=== PATIENT | female | born 1980 | race Caucasian/White ===

== ENCOUNTER 2017-02-16 17:37 | Emergency (ER) | payer SELFPAY ==
[2017-02-16 17:51] VITALS: BMI 34.7
[2017-02-16 17:55] VITALS: RESP 18; O2SAT 100
[2017-02-16] MEDS ORDERED: Lactated Ringer's 1,000 ML IV ONE (19:09)
--- NOTE | 2017-02-16 19:09 | C.PDOC ---
History Of Present Illness Patient who is 12 weeks , P:3, presents to the ER with a complaint of vaginal spotting. Denies abdominal pain, nausea, or vomiting. Time Seen by Provider: 02/16/17 19:09 Chief Complaint (Nursing): Female Genitourinary History Per: Patient History/Exam Limitations: no limitations Onset/Duration Of Symptoms: Days Current Symptoms Are (Timing): Still Present Severity: Mild Pain Scale Rating Of: 3 Quality Of Discomfort: Unable To Describe Associated Symptoms: denies: Fever, Chills, Nausea, Vomiting Alleviating Factors: None Recent travel outside of the [place]: No Abnormal Vaginal Bleeding: No Past Medical History Reviewed: Historical Data, Nursing Documentation, Vital Signs Vital Signs: Last Vital Signs Temp 98.6 F 02/16/17 17:51 Pulse 72 02/16/17 17:51 Resp 18 02/16/17 17:51 BP 106/72 02/16/17 17:51 Pulse Ox 100 02/16/17 19:50 - Medical History PMH: HTN Family History: States: No Known Family Hx - Social History Hx Alcohol Use: No Hx Substance Use: No - Immunization History Hx Tetanus Toxoid Vaccination: No Hx Influenza Vaccination: No Hx Pneumococcal Vaccination: No Review Of Systems Constitutional: Negative for: Fever, Chills Gastrointestinal: Negative for: Nausea, Vomiting, Abdominal Pain Genitourinary: Positive for: Other (Vaginal spotting) Physical Exam - Physical Exam Appears: Non-toxic, No Acute Distress Skin: Warm, Dry Head: Normacephalic Eye(s): bilateral: Normal Inspection Oral Mucosa: Moist Neck: Supple Chest: Symmetrical, No Tenderness Cardiovascular: Rhythm Regular Respiratory: No Rales, No Rhonchi, No Wheezing Gastrointestinal/Abdominal: Soft, No Tenderness, Other (Gravid) Extremity: Normal ROM Extremity: Bilateral: Atraumatic Neurological/Psych: Oriented x3 Gait: Steady ED Course And Treatment - Laboratory Results Result Diagrams: 02/16/17 19:05 02/16/17 19:05 O2 Sat by Pulse Oximetry: 100 (Room air) Pulse Ox Interpretation: Normal Progress Note: Blood work, urinalysis, and pelvic US ordered. IV fluids administered. Reassessment Condition: Improved Disposition Counseled Patient/Family Regarding: Studies Performed, Diagnosis, Need For Followup - Disposition Referrals: [facility] [Outside] [facility] [Outside] Disposition: HOME/ ROUTINE Disposition Time: 19:09 Condition: FAIR Instructions: Threatened Miscarriage (ED) Forms: [facility] (Hong Konger) Print Language: BOLIVIAN - Clinical Impression Clinical Impression: Threatened miscarriage - Scribe Statement The provider has reviewed the documentation as recorded by the Scribtessie Pack All medical record entries made by the Codeyibe were at my direction and personally dictated by me. I have reviewed the chart and agree that the record accurately reflects my personal performance of the history, physical exam, medical decision making, and the department course for this patient. I have also personally directed, reviewed, and agree with the discharge instructions and disposition.
[2017-02-16 19:11] LABS: BASO % 0.5 % (0.0-2.0); EOS # 0.1 K/uL (0.0-0.7); EOS % 1.7 % (0.0-4.0); HEMATOCRIT 40.4 % (34.0-47.0); LYMPH # 2.4 K/uL (1.0-4.3); LYMPH % 29.9 % (20.0-40.0); MEAN CELL VOLUME 85.9 fL (81.0-99.0); MEAN CORPUSCULAR HEMOGLOBIN 28.4 pg (27.0-31.0); MEAN CORPUSCULAR HGB CONC 33.1 g/dL (33.0-37.0); MEAN PLATELET VOLUME 9.4 fL (7.2-11.7); MONO # 0.5 K/uL (0.0-0.8); MONO % 5.7 % (0.0-10.0); RED CELL DISTRIBUTION WIDTH 13.6 % (11.5-14.5)
[2017-02-16 19:29] LABS: ALB/GLOB RATIO 1.4 (1.0-2.1); BILIRUBIN,TOTAL 0.3 mg/dL (0.2-1.3); CALCIUM 8.1 mg/dl (8.6-10.4); GFR AFRICAN-AMERICAN > 60; GLUCOSE,RANDOM 75 mg/dL (65-105); TOTAL PROTEIN 6.7 g/dL (6.3-8.3)
[2017-02-16 19:31] LABS: ALKALINE PHOSPHATASE 74 U/L (38-126); ALT/SGPT 26 U/L (9-52); AST/SGOT 26 U/L (14-36); BLOOD UREA NITROGEN 11 mg/dL (7-17); CARBON DIOXIDE 28 mmol/L (22-30); CHLORIDE 100 mmol/L (98-107); POTASSIUM 3.9 mmol/L (3.6-5.2); SODIUM 133 mmol/L (132-148)
--- NOTE | 2017-02-16 20:48 | US ---
EXAM: US First Trimester, Transabdominal CLINICAL HISTORY: 36 years old, female; Signs and symptoms; Lmp or gestational age (in weeks): 12/15/2016; Antepartum complications; Bleeding; ; Additional info: , vag bleed TECHNIQUE: Real-time transabdominal obstetrical ultrasound of the maternal pelvis and a first trimester with image documentation. COMPARISON: There are no prior studies for comparison. FINDINGS: Gestation: There is a single gestational sac in the uterus. No yolk sac or pole is identified. Uterus/cervix: Uterus is anteflexed. The uterus measures approximately 10 x 5.3 x 6 cm. Ovaries: Neither ovary could be identified. Free fluid: There is no free fluid. Bladder: Bladder is incompletely distended. IMPRESSION: Single gestational sac in the uterus difficult to further evaluate EXAM: US , Transvaginal EXAM DATE/TIME: 02/16/2017 7:10 PM CLINICAL HISTORY: 36 years old, female; Signs and symptoms; Lmp or gestational age (in weeks): 12/15/2016; Antepartum complications; Bleeding; ; Additional info: , vag bleed TECHNIQUE: Real-time transvaginal obstetrical ultrasound of the maternal pelvis and a first trimester with image documentation. Transvaginal imaging was used for better evaluation of the fetus and adnexa. COMPARISON: There are no prior studies for comparison. FINDINGS: Gestation: There is a single gestational sac in the uterus.Gestational sac has mean diameter 17.7 mm. A yolk sac is present, internal diameter measures 1 mm in diameter. pole is not identified. Uterus/cervix: Uterus measures approximately 8.8 x 5 x 6.2 cm. Cervix measures approximately 3.6 cm in length. There is a 7 x 7 x 8 mm anterior subserosal fibroid. Ovaries: Right ovary measures approximately 2.9 x 1.8 x 2.6 cm. There are multiple small follicles. There is intraovarian blood flow. There is a corpus luteum. Left ovary measures approximately 2.6 x 1.4 x 2.2 cm.There are multiple small follicles. There is intraovarian blood flow. Free fluid: There is no free fluid. IMPRESSION: Early intrauterine gestation 6 weeks 1 day by sac size, 1 mm diameter yolk sac, pole not yet visible
[2017-02-16 21:04] VITALS: BP 104/61; PULSE 82; TEMP 98.8
[2017-02-16 21:15] LABS: RBC URINE 13 /hpf (0-3); URINE BACTERIA FEW (<OCC); URINE BILIRUBIN NEGATIVE (NEGATIVE); URINE BLOOD 2+ (NEGATIVE); URINE COLOR Yellow (YELLOW); URINE GLUCOSE (UA) NORMAL (Normal); URINE KETONE NEGATIVE (NEGATIVE); URINE PROTEIN NEGATIVE (NEGATIVE); URINE UROBILINOGEN NORMAL mg/dL (0.2-1.0); WBC URINE 6 /hpf (0-5)
[2017-02-16 21:16] LABS: URINE LEUKOCYTE ESTERASE 1+ Leu/uL (Negative)
== END 2017-02-16 21:20 | disposition home or self-care (01) ==
LOC: C.ER 17:37
DX: O20.0 Threatened abortion (principal); Z3A.12 12 weeks gestation of pregnancy

== ENCOUNTER 2017-02-17 11:24 | Emergency (ER) | payer SELFPAY ==
[2017-02-17 11:24] VITALS: BMI 34.7
[2017-02-17 11:32] VITALS: BP 115/79; PULSE 75; RESP 20; TEMP 98.9; O2SAT 100
--- NOTE | 2017-02-17 12:07 | C.PDOC ---
History Of Present Illness 36-year-old approx 6 week female, () presents to the emergency department with complaints of vaginal spotting that started yesterday. This morning, patient woke up and had an episode of where she passed a large clot, so came to ER. She was seen in this ER yesterday, blood work and ultrasound were done; states she was told to return to the ED in one week. Patient admits to pelvic cramping, but denies fever, vomiting, dysuria, vaginal discharge. Time Seen by Provider: 02/17/17 11:40 Chief Complaint (Nursing): Abdominal Pain History Per: Patient History/Exam Limitations: no limitations Onset/Duration Of Symptoms: Days Current Symptoms Are (Timing): Still Present Severity: Mild Quality Of Discomfort: Cramping Associated Symptoms: denies: Fever, Chills, Nausea, Vomiting, Diarrhea, Urinary Symptoms Abnormal Vaginal Bleeding: Yes Past Medical History Reviewed: Historical Data, Nursing Documentation, Vital Signs Vital Signs: Last Vital Signs Temp 98.9 F 02/17/17 11:27 Pulse 75 02/17/17 11:27 Resp 20 02/17/17 11:27 BP 115/79 02/17/17 11:27 Pulse Ox 100 02/17/17 17:28 - Medical History PMH: HTN Family History: States: No Known Family Hx - Social History Hx Alcohol Use: No Hx Substance Use: No - Immunization History Hx Tetanus Toxoid Vaccination: No Hx Influenza Vaccination: No Hx Pneumococcal Vaccination: No Review Of Systems Except As Marked, All Systems Reviewed And Found Negative. Constitutional: Negative for: Fever Cardiovascular: Negative for: Chest Pain, Palpitations Respiratory: Negative for: Cough, Shortness of Breath Gastrointestinal: Negative for: Nausea, Vomiting, Abdominal Pain, Diarrhea Genitourinary: Positive for: Vaginal Bleeding, Pelvic Pain. Negative for: Dysuria, Vaginal Discharge Skin: Negative for: Rash Neurological: Negative for: Weakness, Numbness, Headache Physical Exam - Physical Exam Appears: Well, Non-toxic, No Acute Distress Skin: Warm, Dry, No Rash Head: Normacephalic Eye(s): bilateral: Normal Inspection Oral Mucosa: Moist Neck: Normal, Normal ROM Cardiovascular: Rhythm Regular Respiratory: Normal Breath Sounds, No Rales, No Rhonchi, No Wheezing Gastrointestinal/Abdominal: Bowel Sounds, Soft, Tenderness (Mild, suprapubic TTP , (-) McBurney's) Back: No CVA Tenderness Extremity: Normal ROM Neurological/Psych: Oriented x3 ED Course And Treatment O2 Sat by Pulse Oximetry: 100 (RA) Pulse Ox Interpretation: Normal Progress Note: Prior visit reviewed, patient's US showed " Early intrauterine gestation 6 weeks 1 day by sac size, 1 mm diameter yolk sac, pole not yet visible". Beta quant was 6574. Patient not currently having active bleeding. PO tylenol given for pelvic cramping. Explained to patient that her beta quant needs to be repeated with a minimum of 48 hours in between tests; doing it today may not provide any information. She was instructed to return tomorrow for reeval and repeat beta quant. She understands she should return sooner if she experiences heavy bleeding or worsening symptoms. Reevaluation Time: 12:15 Reassessment Condition: Improved Disposition Counseled Patient/Family Regarding: Studies Performed, Diagnosis, Need For Followup, Rx Given - Disposition Referrals: [facility] [Outside] Disposition: HOME/ ROUTINE Disposition Time: 12:15 Condition: STABLE Additional Instructions: REGRESAR AL LIONEL DE EMERGENCIAS MAANA PARA REPETIR NIVEL HORMONAL USE TYLENOL SEGN SEA NECESARIO PARA DOLOR BEBER MUCHO LQUIDO REGRESE AL LIONEL DE EMERGENCIA SI LOS SNTOMAS EMPEORAN Prescriptions: Acetaminophen [Tylenol 325mg tab] 650 mg PO Q6 PRN #30 tab PRN Reason: pain/fever Instructions: First Trimester Vaginal Bleed (ED) Forms: [facility] (Greek) Print Language: BOLIVIAN - POA Present On Arrival: None - Clinical Impression Clinical Impression: Vaginal bleeding before 22 weeks gestation - Scribe Statement The provider has reviewed the documentation as recorded by the Scribe (Barbara Smith) All medical record entries made by the Scribe were at my direction and personally dictated by me. I have reviewed the chart and agree that the record accurately reflects my personal performance of the history, physical exam, medical decision making, and the department course for this patient. I have also personally directed, reviewed, and agree with the discharge instructions and disposition.
== END 2017-02-17 12:19 | disposition home or self-care (01) ==
LOC: C.ER 11:24
DX: O46.91 Antepartum hemorrhage, unspecified, first trimester (principal); Z3A.01 Less than 8 weeks gestation of pregnancy

== ENCOUNTER 2017-02-18 10:38 | Emergency (ER) | payer OTHER ==
[2017-02-18 10:38] VITALS: BMI 34.7
[2017-02-18 10:46] VITALS: O2SAT 98
--- NOTE | 2017-02-18 12:33 | C.PDOC ---
History Of Present Illness <NikkoMendozaSerrato Ness - Last Filed: 02/18/17 14:08> <Negar Ovalle - Last Filed: 02/18/17 14:30> 36 yr old female with , presents to the ER for repeat HCG and US. Patient was seen 2 days ago and was advised to return. Patient also had a US 3 days ago which showed a gestational sack but no pulse. Patient admits to ongoing vaginal spotting. BETA on 02/16 6574 and today 2240. Denies fever, chills, nausea, vomiting, abdominal pain, diarrhea, dysuria, weakness or numbness. ( Rojelio El) History Per: Patient History/Exam Limitations: no limitations Onset/Duration Of Symptoms: Days Current Symptoms Are (Timing): Still Present <NikkoMendozaSerrato Ness - Last Filed: 02/18/17 14:08> <Negar Ovalle - Last Filed: 02/18/17 14:30> Time Seen by Provider: 02/18/17 11:13 Chief Complaint (Nursing): Medical Clearance Past Medical History Reviewed: Historical Data, Nursing Documentation, Vital Signs - Medical History PMH: HTN (Gestational) Family History: States: No Known Family Hx - Social History Hx Alcohol Use: No Hx Substance Use: No - Immunization History Hx Tetanus Toxoid Vaccination: No Hx Influenza Vaccination: No Hx Pneumococcal Vaccination: No <Mendoza Elpson Ness - Last Filed: 02/18/17 14:08> Vital Signs: Last Vital Signs Temp 97.2 F L 02/18/17 14:08 Pulse 73 02/18/17 14:08 Resp 14 02/18/17 14:08 BP 109/76 02/18/17 14:08 Pulse Ox 98 02/18/17 14:08 Review Of Systems Except As Marked, All Systems Reviewed And Found Negative. Constitutional: Negative for: Fever, Chills Gastrointestinal: Negative for: Nausea, Vomiting, Abdominal Pain, Diarrhea Genitourinary: Positive for: Vaginal Bleeding (Spotting). Negative for: Dysuria Neurological: Negative for: Weakness, Numbness <Mendoza Elpson Ness - Last Filed: 02/18/17 14:08> Physical Exam - Physical Exam Appears: Non-toxic, No Acute Distress Skin: Warm, Dry, No Rash Head: Atraumatic, Normacephalic Eye(s): bilateral: Normal Inspection, PERRL, EOMI Oral Mucosa: Moist Respiratory: Normal Breath Sounds, No Rales, No Rhonchi, No Stridor, No Wheezing Gastrointestinal/Abdominal: Normal Exam, Soft, No Tenderness, No Guarding, No Rebound Extremity: Normal ROM, No Swelling Neurological/Psych: Oriented x3, Normal Speech, Normal Motor <Rojelio El M - Last Filed: 02/18/17 14:08> ED Course And Treatment O2 Sat by Pulse Oximetry: 98 (RA) Pulse Ox Interpretation: Normal - CT Scan/US US - Transvaginal Other Rad Studies (CT/US): Read By Radiologist, Radiology Report Reviewed CT/US Interpretation: HISTORY: repeat ultrasound from 02/16/17. COMPARISON: 02/16/2017. TECHNIQUE: Transvaginal. FINDINGS: UTERUS: Measures 10.0 x 5.1 x 6.4 cm. Normal in size and appearance. Anterior Mid body level intramural fibroids 1 measures 1.5 x 0.7 x 1.0 cm another measures 10 x 8 x 8 mm. ENDOMETRIUM: Measures approximately a 4 to 5 mm mm in diameter. Unremarkable. CERVIX: Interval distal positioning of the prior intrauterine just gestational sac is now suggested. The gestational sac irregularly-shaped. No embryonic pole within it is seen. Failed inferred. Specifically an in progress is compatible with this the declining beta HCG levels are also consistent with this. Also noted is a nabothian cyst low level echoes within it -minimally complex measuring 8 mm. RIGHT OVARY: Measures 2.8 x 02.0 x 2.3 cm cm. No solid mass. Normal flow. LEFT OVARY: Measures 2.7 x 1.5 x 2.0 cm. No solid mass. Normal flow. FREE FLUID: There is a small amount of free fluid in the cul-de-sac. OTHER FINDINGS: None. IMPRESSION: Findings consistent with an in progress. The irregularly-shaped gestational sac is not the level of the cervix, no interval embryonic pole is identified. . Separate from this is a minimally complicated appearing nabothian cyst. Small amount of free fluid in the cul-de-sac <Rojelio El M - Last Filed: 02/18/17 14:08> Medical Decision Making <Rojelio El - Last Filed: 02/18/17 14:08> <Negar Ovalle - Last Filed: 02/18/17 14:30> Medical Decision Making: PLAN: * US - Transvaginal * BETA-HCG (Rojelio El) Disposition <Rojelio El - Last Filed: 02/18/17 14:08> Counseled Patient/Family Regarding: Studies Performed, Diagnosis, Need For Followup - Disposition Disposition Time: 14:28 <Negar Ovalle - Last Filed: 02/18/17 14:30> - Disposition Referrals: [facility] [Outside] [facility] [Outside] Disposition: HOME/ ROUTINE Condition: GOOD Additional Instructions: RETURN 2-3 DAYS FOR REPEAT BLOOD TEST. Instructions: Spontaneous Miscarriage (ED) Forms: [employer] (Malian) - Clinical Impression Clinical Impression: Miscarriage - Scribe Statement The provider has reviewed the documentation as recorded by the Scribe <Rojelio El - Last Filed: 02/18/17 14:08> <Negar Ovalle - Last Filed: 02/18/17 14:30> - Scribe Statement Danette Bernstein (Rojelio El) Provider Attestation: All medical record entries made by the Scribe were at my direction and personally dictated by me. I have reviewed the chart and agree that the record accurately reflects my personal performance of the history, physical exam, medical decision making, and the department course for this patient. I have also personally directed, reviewed, and agree with the discharge instructions and disposition. (Rojelio El)
--- NOTE | 2017-02-18 14:03 | US ---
HISTORY: repeat ultrasound from 02/16/17 COMPARISON: 02/16/2017 TECHNIQUE: Transvaginal FINDINGS: UTERUS: Measures 10.0 x 5.1 x 6.4 cm. Normal in size and appearance. Anterior Mid body level intramural fibroids 1 measures 1.5 x 0.7 x 1.0 cm another measures 10 x 8 x 8 mm. ENDOMETRIUM: Measures approximately a 4 to 5 mm mm in diameter. Unremarkable. CERVIX: Interval distal positioning of the prior intrauterine just gestational sac is now suggested. The gestational sac irregularly-shaped. No embryonic pole within it is seen. Failed inferred. Specifically an in progress is compatible with this the declining beta HCG levels are also consistent with this. Also noted is a nabothian cyst low level echoes within it -minimally complex measuring 8 mm RIGHT OVARY: Measures 2.8 x 02.0 x 2.3 cm cm. No solid mass. Normal flow. LEFT OVARY: Measures 2.7 x 1.5 x 2.0 cm. No solid mass. Normal flow. FREE FLUID: There is a small amount of free fluid in the cul-de-sac OTHER FINDINGS: None. IMPRESSION: Findings consistent with an in progress. The irregularly-shaped gestational sac is not the level of the cervix, no interval embryonic pole is identified. . Separate from this is a minimally complicated appearing nabothian cyst Small amount of free fluid in the cul-de-sac
[2017-02-18 14:08] VITALS: BP 109/76; PULSE 73; RESP 14; TEMP 97.2
== END 2017-02-18 14:35 | disposition home or self-care (01) ==
LOC: C.ER 10:38
DX: O03.9 Complete or unspecified spontaneous abortion without complication (principal)

== ENCOUNTER 2018-03-30 04:30 | Inpatient (IN) | payer MEDICAID ==
[2018-03-30 05:22] VITALS: BMI 35.9
[2018-03-30] MEDS ORDERED: Lactated Ringer's 1,000 ML IV ONE (05:45)
[2018-03-30] MEDS ORDERED: Oxytocin 30 UNIT 30 UNITS/500 ML BAG IV ONE ×2 (05:51→07:08)
[2018-03-30] MEDS ORDERED: Penicillin G Potassium 5 MU in Dextrose 5% In Water 50 ML IV ONE (06:29)
[2018-03-30 06:54] LABS: BASO % 0.2 % (0.0-2.0); EOS # 0.1 K/uL (0.0-0.7); EOS % 0.9 % (0.0-4.0); HEMOGLOBIN 11.1 g/dL (11.0-16.0); LYMPH % 25.3 % (20.0-40.0); MEAN CELL VOLUME 79.7 fL (81.0-99.0); MEAN CORPUSCULAR HEMOGLOBIN 25.6 pg (27.0-31.0); MEAN CORPUSCULAR HGB CONC 32.1 g/dL (33.0-37.0); MEAN PLATELET VOLUME 9.1 fL (7.2-11.7); MONO # 0.5 K/uL (0.0-0.8); MONO % 6.6 % (0.0-10.0); NEUT # 5.3 K/uL (1.8-7.0); RBC 4.32 Mil/uL (3.80-5.20); RED CELL DISTRIBUTION WIDTH 15.1 % (11.5-14.5); WHITE BLOOD COUNT 7.9 K/uL (4.8-10.8)
[2018-03-30 06:56] LABS: SQUAMOUS EPITHIAL 3 /hpf (0-5); URINE BACTERIA RARE (<OCC); URINE BILIRUBIN NEGATIVE (NEGATIVE); URINE BLOOD NEGATIVE (NEGATIVE); URINE CLARITY Clear (Clear); URINE COLOR Yellow (YELLOW); URINE GLUCOSE (UA) NORMAL (Normal); URINE LEUKOCYTE ESTERASE 3+ Leu/uL (Negative); URINE PROTEIN NEGATIVE (NEGATIVE); URINE UROBILINOGEN NORMAL mg/dL (0.2-1.0)
[2018-03-30] MEDS ORDERED: Penicillin G 5 Million Unit Vial IVPB ONE (07:09)
[2018-03-30 07:17] LABS: BARBITURATES, UR NEGATIVE (NEGATIVE); BENZODIAZEPINES, UR NEGATIVE (NEGATIVE); OPIATES, UR NEGATIVE (NEGATIVE); PHENCYCLIDINE, UR NEGATIVE (NEGATIVE)
[2018-03-30 07:25] LABS: ALB/GLOB RATIO 1.1 (1.0-2.1); ALBUMIN 3.1 g/dL (3.5-5.0); ALT/SGPT 11 U/L (9-52); AST/SGOT 23 U/L (14-36); BLOOD UREA NITROGEN 5 mg/dL (7-17); CALCIUM 8.3 mg/dl (8.6-10.4); GFR NON-AFRICAN AMERICAN > 60
[2018-03-30 07:54] LABS: HEPATITIS B SURFACE AG Negative (NEGATIVE)
[2018-03-30] MEDS ORDERED: Bupivacaine HCl/FentaNYL Cit 100 ML EPI ONE (09:17)
--- NOTE | 2018-03-30 09:31 | OBADHP ---
Datetime: 03/30/2018 06:03 Admit Comment, IP Provider: 37 yo female with an IUP at 38.3 weeks and presented with c/o o f gush of clear fluid at about 2 AM and some contractions. Admits to adequate FM and denies VB. Anten atal course essentially uneventful. PMHx and PSHx Negative Meds PNV and Fe NKDA Social HX Denies x 3 PE: as noted above A/P Term with SROM/clear fluid and in early labor GBS Negative NST reactive Rh Positive VSS Will admit for Anticipated Vaginal Delivery Will start Pitocin for augmentation of labor Admit orders written Requesting an Epidural when the time comes. Pelvic Type - PN: Adequate Extremities - PN: Normal Abdomen - PN: Normal Back - PN: Normal Breast - PN: Not Done Lungs - PN: Normal Heart - PN: Normal Thyroid - PN: Normal Neurologic - PN: Normal HEENT - PN: Normal General - PN: Normal Presentation-Admit: Vertex FHR - Baseline A Provider: 120 Amniotic Fluid Color, Provider: Clear Membranes, Provider: Ruptured Contraction Comments Provider: Irregular Gestation - Est Wks by US: 38.3 Pool Provider: Negative Nitrazine Provider: Positive IP Hx Assessment: The History has been Reviewed and is Current Vital Signs Provider: Reviewed; Within Normal Limits IP Chief Complaint: Uterine contractions; Suspected ruptured membranes NICHD Variability Prov Fetus A: Moderate 6-25bpm NICHD Accel Fetus A IP Provider: [id number] FHR Category Provider Fetus A: Category I NICHD Decel Fetus A IP Provider: None Dilatation, Provider: 2 Effacement, Provider: 60 Station, Provider: -3 Genitourinary Exam: Normal DTRs - PN: Normal EGA AdmitDate IP: 38.3 IP Adm Impression: Term, intrauterine ; No Active Labor; Ruptured Membranes IP Admit Plan: Admit to unit; Initiate labor augmentation protocol
[2018-03-30] MEDS ORDERED: Penicillin G Potassium 2.5 MU in Dextrose 5% In Water 50 ML IV SCH (11:00)
[2018-03-30] MEDS ORDERED: Lactated Ringer's 1,000 ML IV SCH (12:00)
[2018-03-31 07:40] LABS: BASO # 0.1 K/uL (0.0-0.2); BASO % 0.5 % (0.0-2.0); EOS # 0.1 K/uL (0.0-0.7); EOS % 0.5 % (0.0-4.0); HEMOGLOBIN 10.1 g/dL (11.0-16.0); LYMPH # 2.1 K/uL (1.0-4.3); LYMPH % 18.1 % (20.0-40.0); MEAN CELL VOLUME 79.1 fL (81.0-99.0); MEAN CORPUSCULAR HEMOGLOBIN 25.3 pg (27.0-31.0); MEAN PLATELET VOLUME 8.9 fL (7.2-11.7); MONO # 0.6 K/uL (0.0-0.8); NEUT # 8.8 K/uL (1.8-7.0); NEUT % 75.9 % (50.0-75.0); RBC 3.99 Mil/uL (3.80-5.20); RED CELL DISTRIBUTION WIDTH 14.9 % (11.5-14.5); WHITE BLOOD COUNT 11.6 K/uL (4.8-10.8)
[2018-03-31] MEDS: Oxycodone/Acetaminophen 5/325 mg Tab PO PRN ×2 (08:23→23:01)
[2018-03-31 08:34] LABS: ALBUMIN 2.4 g/dL (3.5-5.0); ALT/SGPT 18 U/L (9-52); AST/SGOT 28 U/L (14-36); BLOOD UREA NITROGEN 3 mg/dL (7-17); CALCIUM 8.2 mg/dl (8.6-10.4); GFR NON-AFRICAN AMERICAN > 60
[2018-03-31] MEDS: Multiple Vitamins Tab PO SCH (10:42)
--- NOTE | 2018-03-31 19:28 | OBPPN ---
Datetime: 03/31/2018 08:48 PP Pain Prov: Within normal limits PP Nausea Prov: Denies PP Flatus Prov: Yes PP BM Prov: No PP Impression Prov: Normal progression PP Plan Prov: Continue present management PP Progress Note Prov: Patient seen and examined at bedside. Per nursing no acute events overnight. Patient is doing well, pain is controlled. Lochia is mild. She is ambulating and tolerating diet. Rep orts passing flatus, has not had a bowel movement. Urinating without difficulty. She is breast and blanquita ttle feeding. Denies headaches, dizziness, cp, palpitations, sob, urinary symptoms. VS: Temp 98.8 BP 111/68 HR 73 Gen: AAOx3, NAD Abdomen: Soft, fundus firm at fundus Ext: No clubbing, cyanosis, edema Labs: 7.9>11.1/34.4<246 11.6>10.1/31.6<222 O positive Rubella immune A/P: 37 year old at 38w3d s/p PPD#1 -Pain control with Motrin as needed -Encourage ambulation and hydration -Encourage -Continue routine care -Anticipate discharge home tomorrow -Plan discussed with Dr Alexy Orellana DO PGY-2 Pt seen and Examined with Dr. Orellana, and agreed with her findings and her POC ff Vital Signs Provider PP: Reviewed; Within Normal Limits
[2018-04-01 00:11] VITALS: O2SAT 98
[2018-04-01 08:18] VITALS: BP 97/69; PULSE 75; RESP 18
[2018-04-01] MEDS: Multiple Vitamins Tab PO SCH (09:33)
--- NOTE | 2018-04-01 14:03 | OBPPN ---
Datetime: 04/01/2018 07:39 PP Pain Prov: Within normal limits PP Nausea Prov: Present PP Flatus Prov: Yes PP BM Prov: No PP Nausea Prov comment: Slight nausea, no vomiting PP Breasts Prov: Not Done PP Heart Prov: Normal PP Lungs Prov: Normal PP Abdomen/Uterus Prov: Normal PP Lochia Prov: Normal PP Vulva/Perineum Prov: Not Done PP CVA Tenderness Prov: Not Done PP Extremities Prov: Not Done PP C/S Incision Prov: Not Applicable PP Progress Prov: Abnormal PP Comments Phys Exam Prov: General: No acute distress HEENT: Normocephalic, atraumatic, EOMI Cardio: Pulm: GI: soft, non rigid, non distended : Uterus at umblicus height (Annotations: Data stored by CPN on behalf of user) PP Impression Prov: Normal progression; difficulties PP Plan Prov: Discharge PP Progress Note Prov: Subjective: Patient seen and examined at bedside this morning. Patient states that her pain is well controlled with current pain regime. She endorses a slight discomfort along the left rib cage upon inhalation a nd bilateral shoulder tightness. She states that she experiences minor bouts of nausea, however no e pisodes of vomiting. Patient indicates that she has been ambulating throughout her room. She indicate s that she has been passing flatus and denies any bowel movements. She indicates that she is experinc ing moderate vaginal bleeding amounting to 3 pad changes per day. Patient expresses concern over faisal st milk production quantity. She states that she has been supplementing with formula. Patient express es desire for tubal ligation procedure as she no longer wishes for any future pregnancies. She refuse s oral contraceptive pills or depo-provera shot. Patient denies any blurry vision, chest pain, shortn ess of breath, abdominal pain, dysuria. Objective: See PE above. A/P: 37 female status post post day 2. -Instructed patient to follow up in clinic in 6 weeks. -Instructed patient to follow up with gallery manager for baby in 1 week. -Educated patient on temporary contraception options. Patient only wants a tubal ligtion in the fu ture. -Pain control with Motrin as needed. -Encourage and ambulation -Stable and Satisfactory condition and recovery -Will discharge home with instructions and Rx's Case discussed with Dr. Tracey. Vega Shaffer, PGY-1 Pt seen and examined with Dr. Shaffer and agreed with his findings and POC
--- NOTE | 2018-04-01 15:05 | OBDCSUM ---
Datetime: 04/01/2018 10:23 Discharged to, Provider: Home Follow up at, Provider: STEPHANIE Disch Instr Activity: Normal activity Disch Instr Diet: Regular Discharge Diet restrict Prov: None Discharge Instructions, Provider: Routine instructions given Discharge Diagnosis, Provider: Term Delivered Discharge Time: 04/01/2018 12:00 Follow up in weeks, Provider: May 11, 2018 Disch Referrals: None Contraception discussed, Prov: Yes Disch Activity Restrictions: No exercising; No lifting; No driving; Minimize walking; Minimize stair -climbing; No sexual activity; Nothing in vagina - [place], tampons, douche Discharge Comment, Provider: Subjective: Patient seen and examined at bedside this morning. Patient states that her pain is well controlled with current pain regime. She endorses a slight discomfort along the left rib cage upon inhalation a nd bilateral shoulder tightness. She states that she experiences minor bouts of nausea, however no e pisodes of vomiting. Patient indicates that she has been ambulating throughout her room. She indicate s that she has been passing flatus and denies any bowel movements. She indicates that she is experinc ing moderate vaginal bleeding amounting to 3 pad changes per day. Patient expresses concern over faisal st milk production quantity. She states that she has been supplementing with formula. Patient express es desire for tubal ligation procedure as she no longer wishes for any future pregnancies. She refuse s oral contraceptive pills or depo-provera shot. Patient denies any blurry vision, chest pain, shortn ess of breath, abdominal pain, dysuria. Objective: See PE above. A/P: 37 female status post post day 2. -Instructed patient to follow up in clinic in 6 weeks. -Instructed patient to follow up with event security officer for baby in 1 week. -Educated patient on temporary contraception options. Patient only wants a tubal ligtion in the fu ture. -Pain control with Motrin as needed. -Encourage and ambulation -Stable and Satisfactory condition and recovery -Will discharge home with instructions and Rx for Motrin Advise to continue pelvic rest x 6-8 weeks, daily PNV x 4-6months - Contraception after Delivery: Tubal Ligation
[2018-04-01 18:02] VITALS: TEMP 97.1
== END 2018-04-01 12:10 | disposition home or self-care (01) | DRG 373 ==
LOC: C.EROB 04:30 → C.4D 05:30 → C.4M 17:15
PROVIDERS: ADMIT Obstetrics & Gynecology; ATTEND Obstetrics & Gynecology
PROC: 10E0XZZ Delivery of Products of Conception, External Approach (ICD-10-PCS; principal; 2018-03-30)
DX: O36.0930 Maternal care for other rhesus isoimmunization, third trimester, not applicable or unspecified (principal); O99.824 Streptococcus B carrier state complicating childbirth; Z3A.38 38 weeks gestation of pregnancy; Z37.0 Single live birth